=== PATIENT | male | born 1970 | race African-American/Black ===

== ENCOUNTER 2021-12-28 14:25 | Emergency (ER) | payer MEDICAID, MEDICARE ==
[~2021-12-28] VITALS: Ht 175.3 cm; Wt 79.0 kg
[2021-12-28 16:04] LABS: CLARITY URINE CLEAR (CLEAR); COLOR URINE YELLOW (YELLOW); KETONES URINE NEGATIVE (NEGATIVE); LEUKOCYTE ESTERASE URINE NEGATIVE (NEGATIVE); NITRITE URINE NEGATIVE (NEGATIVE); OCCULT BLOOD URINE 3+ (NEGATIVE); PROTEIN URINE NEGATIVE (NEGATIVE); SPECIFIC GRAVITY URINE 1.013 (1.005-1.030)
[2021-12-28 17:25] LABS: BASOPHILS % 0.2 % (0.0-2.0); EOSINOPHILS % 0.6 % (0.0-5.0); HEMATOCRIT. 46.6 % (42.0-52.0); HEMOGLOBIN. 15.3 g/dL (14.0-18.0); LYMPHOCYTES % 18.1 % (20.0-50.0); MEAN CORPUSCULAR HEMOGLOBIN 28.1 pg (28.0-32.0); MEAN CORPUSCULAR VOLUME 85.5 fL (80.0-94.0); MEAN PLATELET VOLUME 8.6 fl (7.4-10.4); MONOCYTES % 7.4 % (2.0-8.0); NEUTROPHILS % 73.7 % (40.0-76.0); PLATELET 72 x1000/uL (130-400); RED BLOOD CELL COUNT 5.45 mill/uL (4.7-6.1); RED CELL DISTRIBUTION WIDTH 14.8 % (11.6-14.6)
[2021-12-28 17:31] LABS: CHLORIDE 110 mEq/L (98-107)
[2021-12-28] MEDS ORDERED: TAMSULOSIN HCL 0.4MG SR CAPSULE PO NR (19:36)
[2021-12-28] MEDS ORDERED: KETOROLAC 30MG/ML VIAL IM NR (19:37)
[2021-12-28] MEDS ORDERED: TOPUD MT (19:41)
[2021-12-28] MEDS ORDERED: IBUP-2029 MT (19:41)
[2021-12-28] MEDS ORDERED: TAMS-11 MT (19:41)
[2021-12-28] MEDS ORDERED: HYDROCODONE/ACETAMINOPHEN 10/325MG TABLET PO ONE (19:45)
[2021-12-28 20:27] VITALS: BP 137/92
== END 2021-12-28 20:40 | disposition home or self-care (01) ==
LOC: ER 14:25
DX: N20.0 Calculus of kidney (principal); Z88.3 Allergy status to other anti-infective agents; Z89.512 Acquired absence of left leg below knee
CPT/HCPCS: 36415; 74176; 76870; 80053; 81003; 85025; 93976; 99285; J1885; A4315